=== PATIENT | male | born 1950 | race Caucasian/White ===

== ENCOUNTER 2020-03-07 16:21 | Emergency (ER) | payer OTHER ==
[2020-03-07] MEDS ORDERED: Morphine 4 MG/ML VIAL ONE (17:30)
[2020-03-07 17:59] LABS: #Basophils 0.1 thou/uL (0.0-0.2); #Eosinphils 0.1 thou/uL (0.0-0.7); #Lymphocytes 1.2 thou/uL (1.20-3.40); #Monocytes 0.8 thou/uL (0.11-0.59); #Neutrophils 10.1 thou/uL (1.40-6.50); %Basophils 0.5 % (0.0-1.0); %Lymphocytes 9.7 % (21.0-51.0); %Monocytes 6.8 % (0.0-10.0); Hemoglobin 13.9 g/dL (14.0-18.0); Mean Corpuscular HGB CONC 33.2 g/dL (32.0-36.0); Mean Corpuscular Hemoglobin 31.1 pg (27.0-31.0); Mean Corpuscular Volume 93.7 fL (78.0-98.0); Mean Platelet Volume 7.3 fL (7.4-10.4); Platelet Count 251 thou/uL (130-400); RBC Distribution Width 12.8 % (11.5-14.5); Red Blood Cell (RBC) Count 4.46 mill/uL (4.70-6.10); White Blood Cell (WBC) Count 12.3 thou/uL (4.8-10.8)
[2020-03-07 18:05] LABS: PTT 27.2 sec (22.9-36.1); Prothrombin Time 13.6 sec (12.0-14.7)
[2020-03-07 18:24] LABS: Blood, Urine Large (Negative); Clarity Turbid (Clear); Glucose, Urine (Dipstick) Negative (Negative); Protein, Urine (Dipstick) > or equal to 300 mg/dL (Neg-Trace); Specific Gravity, Urine 1.035 (1.002-1.036)
[2020-03-07 18:25] LABS: Bilirubin Unable to Interpret (Negative); Ketone, Urine Unable to Interpret mg/dL (Negative); Leukocyte Unable to Interpret (Negative); Nitrite Unable to Interpret (Negative); Urobilinogen UNABLE TO INTERPRET mg/dL (Less than 2)
[2020-03-07 18:29] LABS: RBC/HPF Greater than 50 HPF (0-3)
[2020-03-07 18:30] LABS: Squamous Epithelial None Seen HPF (0-3)
[2020-03-07 18:31] LABS: Bacteria/HPF Rare-Few HPF (None Seen)
[2020-03-07 18:55] LABS: ALT (SGPT) 15 U/L (8-55); AST (SGOT) 15 U/L (5-34); Albumin 3.8 g/dL (3.4-4.8); Alkaline Phosphatase 68 U/L (40-110); Anion Gap 13 mmol/L (10-20); BUN (Urea Nitrogen) 14 mg/dL (8.4-25.7); Bilirubin, Total 0.5 mg/dL (0.2-1.2); Calc. Creatinine Clearance 0 mL/min (70-130); Calcium 9.8 mg/dL (7.8-10.44); Carbon Dioxide 22 mmol/L (23-31); Chloride 103 mmol/L (98-107); Estimated GFR-MDRD 69; Globulin 2.7 g/dL (2.4-3.5); Glucose 120 mg/dL (80-115); Potassium 3.8 mmol/L (3.5-5.1); Protein, Total 6.5 g/dL (5.8-8.1); Sodium 134 mmol/L (136-145)
--- NOTE | 2020-03-07 19:34 | CT ---
CT ABDOMEN AND PELVIS WITH IV CONTRAST: 03/07/20 INDICATIONS: Lower abdominal pain with hematuria. Comparison made to recent CT abdomen and pelvis of 02/03/20. FINDINGS: Lung bases clear. Liver, spleen and pancreas unremarkable. Gallbladder shows mild distention but otherwise unremarkable . Small bowel loops normal. Adrenal glands and kidneys unremarkable. Mild fullness to the left renal pelvis is stable. Review of the urinary bladder shows a distended bladder. There is gas within the bladder and there is gas within the wall of the bladder consistent with emphysematous cystitis. Density within the bladde r could represent blood product or soft tissue mass. The prostate is enlarged. Aorta is normal caliber. No free fluid, mass or adenopathy. Prominent stool throughout the colon. IMPRESSION: Gas in the bladder with gas in the bladder wall. There is bladder wall thickening and there is abnorm al density within a distended bladder. A [place]wood catheter is noted. 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 The abnormal density within the bladder could represent hemorrhage and/or soft tissue mass. T here is associated prostatic hypertrophy. POS: [facility]
[2020-03-07] MEDS ORDERED: Cefepime 2 GM VIAL ONE (20:28)
== END 2020-03-08 01:11 | disposition short-term general hospital (02) ==
LOC: ERS 16:21
DX: A41.9 Sepsis, unspecified organism (principal); N30.81 Other cystitis with hematuria; N32.89 Other specified disorders of bladder; F41.9 Anxiety disorder, unspecified
CPT/HCPCS: 36415; 51702; 74177; 80053; 81003; 81015; 83605; 85025; 85610; 85730; 86850; 86900; 86901; 87040; 87077; 87086; 87186; 96361; 96365; 96366; 96367; 96375; J0692; J2270; J3370; J7030